=== PATIENT | female | born 1975 | race Caucasian/White ===

== ENCOUNTER → 2016-09-20 | Outpatient (CLI) | payer BC ==
--- NOTE | 2016-09-20 17:05 | DX ---
Left Foot - 3 views Indication: Heel pain. No trauma. Technique: Weightbearing AP, oblique, and lateral views. Comparison: None Findings: The normally mineralized bones are anatomically aligned. No acute fracture or periosteal re action. No evidence of stress fracture. Joint spaces are well preserved. Tiny osteophytes emanate off the lateral first metatarsophalangeal joint line. Small plantar spur is present. Calcaneus is normal . No sclerosis to suggest stress injury. Impression: 1. No fracture or bone lesion. 2. Small plantar spur. 3. Minimal early degenerative arthropathy at the first metatarsophalangeal joint.
--- NOTE | 2016-09-20 17:09 | DX ---
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 Findings: Left calcaneus demonstrates no fracture or destructive osseous lesions. Dorsal and plantar calcaneal spurs are noted. Impression: 1. Dorsal and plantar calcaneal spurs. 2. No evidence of calcaneal fracture. 3. If there is clinical concern for a stress fracture, consider additional imaging with MRI of the le ft foot if clinically indicated.
== END ==
LOC: BMCIMAGING 15:16
PROVIDERS: ATTEND Internal Medicine
DX: M77.32 Calcaneal spur, left foot (principal)

== ENCOUNTER → 2016-12-13 | Outpatient (CLI) | payer BC | LOC: BMCIMAGING 14:44 | DX: Z12.31 Encounter for screening mammogram for malignant neoplasm of breast (principal) | CPT/HCPCS: G0202 ==

== ENCOUNTER → 2016-12-20 | Outpatient (CLI) | payer BC | LOC: BMCIMAGING 12:07 | PROVIDERS: ATTEND Obstetrics & Gynecology | DX: R92.8 Other abnormal and inconclusive findings on diagnostic imaging of breast (principal) | CPT/HCPCS: G0206 ==

== ENCOUNTER 2017-12-27 13:29 | Emergency (ER) | payer OTHER ==
--- NOTE | 2017-12-27 13:37 | EDPHY ---
H & P Stated Complaint: Palpitations Time Seen by Provider: 12/27/17 13:37 HPI/ROS: CHIEF COMPLAINT: Palpitations HISTORY OF PRESENT ILLNESS: The patient presents the ED with a 1 day history of palpitations and left arm discomfort. She has been experiencing tachycardia intermittently over the past several weeks. She reports that early this morning she awoke in her heart rate was 170 according to a heart rate monitor in her house. The patient did developed some mild discomfort in her left arm. She denies any chest pain or shortness of breath. She denies pleuritic chest pain. She denies asymmetric calf pain or swelling. She denies any significant change in her pattern of alcohol consumption. The patient denies any record additional drugs. She denies additional acute complaints. REVIEW OF SYSTEMS: A comprehensive 10 point review of systems is otherwise negative aside from elements mentioned in the history of present illness. Source: Patient Exam Limitations: No limitations - Personal History LMP (Females 10-55): 8-14 Days Ago Current Tetanus Diphtheria and Acellular Pertussis (TDAP): Yes Tetanus Vaccine Date: < 10 years - Medical/Surgical History Hx Asthma: No Hx Chronic Respiratory Disease: No Hx Diabetes: No Hx Cardiac Disease: No Hx Renal Disease: No Hx Cirrhosis: No Hx Alcoholism: No Hx HIV/AIDS: No Hx Splenectomy or Spleen Trauma: No Other PMH: mitral valve prolapse and regurg - Social History Smoking Status: Never smoked - Physical Exam Exam: General Appearance: Alert, no distress Eyes: Pupils equal and round no pallor or injection ENT, Mouth: Mucous membranes moist Respiratory: There are no retractions, lungs are clear to auscultation Cardiovascular: Tachycardic Gastrointestinal: Abdomen is soft and nontender, no masses, bowel sounds normal Neurological: 5/5 strength all 4 extremities Skin: Warm and dry, no rashes Musculoskeletal: Neck is supple nontender Extremities: symmetrical, full range of motion Constitutional: Initial Vital Signs Temperature (C) 36.3 C 12/27/17 13:31 Heart Rate 123 H 12/27/17 13:31 Respiratory Rate 24 H 12/27/17 13:31 Blood Pressure 143/120 H 12/27/17 13:31 O2 Sat (%) 99 12/27/17 13:31 O2 Delivery Mode Room Air Allergies/Adverse Reactions: No Known Allergies Allergy (Unverified 12/27/17 13:36) Home Medications: Medication Instructions Recorded Bcp 12/27/17 Medical Decision Making - Diagnostics EKG Interpretation: EKG: Complete interpretation has been separately recorded in the [facility] archive. Summary impression: Sinus tachycardia, rate 116. Imaging Results: Imaging Impressions Chest X-Ray 12/27/17 13:48 Impression: Normal. ED Course/Re-evaluation: The patient presents to the ED for evaluation of palpitations. She reported a heart rate 170 last night on a home test. The patient denies any pleuritic chest pain or asymmetric calf pain or swelling. Given her elevated heart rate a D-dimer was checked which was normal. I feel this adequately excludes pulmonary embolism in the absence of any additional symptoms. The patient did undergo an echocardiogram in the emergency department which demonstrates only a tachycardia without valvular heart disease or wall motion abnormality. The patient's chest x-ray demonstrates no evidence of acute disease. The patient is TSH is also normal. I reviewed the patient's echocardiogram with Dr. Catherine Preston. The patient will follow up with Dr. Preston is an outpatient for Holter monitor testing given her reported heart rate of 170 at home. The patient will be discharged home with customary aftercare instructions and return precautions. Differential Diagnosis: Differential diagnosis considered includes dehydration, metabolic abnormality, thyrotoxicosis, pericarditis, cardiomyopathy - Data Points Laboratory Results: Laboratory Results 12/27/17 13:52 12/27/17 13:52 12/27/17 12/27/17 12/27/17 13:52 13:52 13:52 WBC RBC Hgb Hct MCV MCH MCHC RDW Plt Count MPV Neut % (Auto) Lymph % (Auto) [place] % (Auto) Eos % (Auto) Baso % (Auto) Nucleat RBC Rel Count Absolute Neuts (auto) Absolute Lymphs (auto) Absolute Monos (auto) Absolute Eos (auto) Absolute Basos (auto) Absolute Nucleated RBC Immature Gran % Immature Gran # D-Dimer 0.32 ug/mLFEU ug/mLFEU (0.00-0.50) Sodium 134 mEq/L L mEq/L (135-145) Potassium 3.6 mEq/L mEq/L (3.5-5.2) Chloride 101 mEq/L mEq/L (97-110) Carbon Dioxide 19 mEq/l L mEq/l (22-31) Anion Gap 14 mEq/L mEq/L (8-16) BUN 4 mg/dL L mg/dL (7-23) Creatinine 0.5 mg/dL L mg/dL (0.6-1.0) Estimated GFR > 60 Glucose 109 mg/dL H mg/dL (70-100) Calcium 9.4 mg/dL mg/dL (8.5-10.4) Troponin I < 0.012 ng/mL ng/mL (0.000-0.034) TSH 3.410 uIU/mL uIU/mL (0.465-4.680) Beta HCG, Qual NEGATIVE 12/27/17 13:52 WBC 10.76 10^3/uL H 10^3/uL (3.80-9.50) RBC 3.72 10^6/uL L 10^6/uL (4.18-5.33) Hgb 13.1 g/dL g/dL (12.6-16.3) Hct 36.3 % L % (38.0-47.0) MCV 97.6 fL fL (81.5-99.8) MCH 35.2 pg H pg (27.9-34.1) MCHC 36.1 g/dL g/dL (32.4-36.7) RDW 11.7 % % (11.5-15.2) Plt Count 251 10^3/uL 10^3/uL (150-400) MPV 10.0 fL fL (8.7-11.7) Neut % (Auto) 75.0 % H % (39.3-74.2) Lymph % (Auto) 15.7 % % (15.0-45.0) [place] % (Auto) 8.0 % % (4.5-13.0) Eos % (Auto) 0.2 % L % (0.6-7.6) Baso % (Auto) 0.7 % % (0.3-1.7) Nucleat RBC Rel Count 0.0 % % (0.0-0.2) Absolute Neuts (auto) 8.07 10^3/uL H 10^3/uL (1.70-6.50) Absolute Lymphs (auto) 1.69 10^3/uL 10^3/uL (1.00-3.00) Absolute Monos (auto) 0.86 10^3/uL H 10^3/uL (0.30-0.80) Absolute Eos (auto) 0.02 10^3/uL L 10^3/uL (0.03-0.40) Absolute Basos (auto) 0.08 10^3/uL 10^3/uL (0.02-0.10) Absolute Nucleated RBC 0.00 10^3/uL 10^3/uL (0-0.01) Immature Gran % 0.4 % % (0.0-1.1) Immature Gran # 0.04 10^3/uL 10^3/uL (0.00-0.10) D-Dimer Sodium Potassium Chloride Carbon Dioxide Anion Gap BUN Creatinine Estimated GFR Glucose Calcium Troponin I TSH Beta HCG, Qual Departure - Departure Disposition: Home, Routine, Self-Care Clinical Impression: Tachycardia Condition: Good Instructions: Tachycardia (ED) Additional Instructions: 1. Please return to the ED for markedly worsening symptoms, difficulty breathing, chest pain, heart rate persistently greater than 130 or other concerns. 2. The testing done in the emergency department demonstrates no significant findings aside from a elevated resting heart rate. 3. 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 Referrals: Catherine Preston MD [Medical Doctor] - As per Instructions
--- NOTE | 2017-12-27 13:45 | CPEKG ---
Heart Rate: 116 RR Interval: 517 P-R Interval: 156 QRSD Interval: 74 QT Interval: 324 QTC Interval: 451 P Vader: 54 QRS Vader: 35 T Wave Vader: 30 EKG Severity - BORDERLINE ECG - EKG Impression: SINUS TACHYCARDIA EKG Impression: PROBABLE LEFT ATRIAL ABNORMALITY Electronically Signed By: Noah Reed 27-Dec-2017 15:56:09
[2017-12-27 14:02] VITALS: BP 148/96
[2017-12-27 14:03] LABS: PLATELET COUNT 251 10^3/uL (150-400)
--- NOTE | 2017-12-27 15:11 | ECHO ---
[email or web address] [address] [address] Main: [phone] Fax: Transthoracic Echocardiogram Name: DAYRON LEYVA MR#: [id number] Study Date: 12/27/2017 Study Time: 02:22 PM Date of : 1975 Age: 42 year(s) Height: 157.5 cm (62 in.) Weight: 62.6 kg (138 lb.) BSA: 1.63 m2 Gender: Female Examination: Echo Indication: Chest pain/tachycardia, hx MVP/MR Image Quality: Contrast: Requested by: Noah Reed BP: / Heart Rate: Rhythm: Indication: Chest pain/tachycardia, hx MVP/MR Procedure Staff Dean For Student Affairs: Paula Stein RDCS Reading Physician: Catherine Preston MD Requesting Provider: Conclusions: Normal size left ventricle. No LV hypertrophy. Normal global systolic LV function. The ejection fraction is estimated to be 70-75 %. No regional wall motion abnormality. Normal size right ventricle. Normal RV function. Trivial to mild mitral regurgitation. Trivial tricuspid valve regurgitation. No pericardial effusion. There is no previous echocardiogram for comparison. Measurements: Chambers Valvular Assessment AV/MV Valvular Assessment TV/PV Normal Normal Normal Name Value Range Name Value Range Name Value Range IVSd (2D): 0.5 cm (0.6 cm-1.1 AV Vmax: 1.79 m/s (1 m/s-1.7 cm) m/s) LVDd (2D): 4.6 cm (3.9 cm-5.3 AV maxP mmHg ( - ) cm) AV meanP mmHg ( - ) LVDs (2D): 2.9 cm (2.1 cm-4 MV E Vmax: 0.75 m/s ( - ) cm) MV A Vmax: 0.92 m/s ( - ) LVPWd (2D): 0.7 cm ( - ) MV E/A: 0.82 ( - ) LVEF (MOD4): 64 % (>=55 %) EF Range: 70-75 % Continued Measurements: Chambers Valvular Assessment AV/MV Patient: DAYRON LEYVA Study Date: 12/27/2017 Page 1 of 2 02:22 PM Name Value Name Value LADs: 3.6 cm MV E/E' Septal: 2.90 LADs Lon.7 cm MV E/E' Lateral: 4.10 LA Area: 21.2 cm2 Additional Vessels Name Value Ao Ascendin.3 cm Findings: Left Ventricle: Normal size left ventricle. No LV hypertrophy. Normal global systolic LV function. The ejection fraction is estimated to be 70-75 %. No regional wall motion abnormality. Right Ventricle: Normal size right ventricle. Normal RV function. Left Atrium: The left atrium is normal in size. Right Atrium: The right atrium is normal in size. Mitral Valve: The mitral valve is normal in appearance and function. Trivial to mild mitral regurgitation. Aortic Valve: The aortic valve is normal in appearance and function. Tricuspid Valve: The tricuspid valve is normal in appearance and function. Trivial tricuspid valve regurgitation. Pulmonic Valve: The pulmonic valve is normal in appearance and function. Aorta: The aorta is normal. Pericardium: No pericardial effusion. (No Signature Object) Patient: DAYRON LEYVA Study Date: 12/27/2017 Page 2 of 2 02:22 PM [id number]
== END 2017-12-27 15:51 | disposition home or self-care (01) ==
DX: R00.0 Tachycardia, unspecified (principal)

== ENCOUNTER → 2018-05-31 | Outpatient (CLI) | payer OTHER | LOC: FIMAGING 12:24 | PROVIDERS: ATTEND Obstetrics & Gynecology | DX: Z12.31 Encounter for screening mammogram for malignant neoplasm of breast (principal) ==